=== PATIENT | female | born 1975 | race Caucasian/White ===

== ENCOUNTER 2021-12-12 13:07 | Outpatient (CLI) | payer BC, SELFPAY ==
--- NOTE | 2021-12-12 13:20 | CRLHL7_ITS ---
For Patients: As a result of the Century Cures Act, medical imaging exams and procedure reports are released immediately into your electronic medical record. You may view this report before your referring provider. If you have questions, please contact your health care provider. BILATERAL SCREENING MAMMOGRAM WITH COMPUTER-AIDED DETECTION AND TOMOSYNTHESIS TECHNIQUE: CC and MLO views were obtained. These mammographic images have been obtained using full-field digital technique. These mammographic images were interpreted with the benefit of computer-aided detection. Breast Tomosynthesis was used in this interpretation. COMPARISON FILM: 11/08/20, 11/03/19, 10/18/18. FINDINGS: There are scattered areas of fibroglandular density IMPRESSION: There is no radiographic evidence for malignancy. ASSESSMENT: BI-RADS Category 1: Negative RECOMMENDATION: Routine screening mammogram in 1 year. A lay language report of this examination will be provided to the patient. Octavio Jernigan M.D. Diagnostic Radiologist [email or web address] PAT/Dictated by: Octavio Jernigan MD @ 12/13/2021 1:06:00 PM (Electronically Signed)
== END 2021-12-12 13:08 | disposition home or self-care (01) ==
LOC: MAMMO 13:08
PROVIDERS: Visit Provider Obstetrics & Gynecology
DX: Z12.31 Encounter for screening mammogram for malignant neoplasm of breast (principal)
CPT/HCPCS: 77063; 77067

== ENCOUNTER 2023-04-30 12:48 | Outpatient (CLI) | payer BC, SELFPAY ==
--- NOTE | 2023-04-30 13:00 | CRLHL7_ITS ---
For Patients: As a result of the Century Cures Act, medical imaging exams and procedure reports are released immediately into your electronic medical record. You may view this report before your referring provider. If you have questions, please contact your health care provider. BILATERAL SCREENING MAMMOGRAM WITH COMPUTER-AIDED DETECTION AND TOMOSYNTHESIS TECHNIQUE: CC and MLO views were obtained. These mammographic images have been obtained using full-field digital technique. These mammographic images were interpreted with the benefit of computer-aided detection. Breast Tomosynthesis was used in this interpretation. COMPARISON FILM: 12/12/21, 11/08/20, 11/03/19. FINDINGS: There are scattered areas of fibroglandular density IMPRESSION: There is no radiographic evidence for malignancy. ASSESSMENT: BI-RADS Category 1: Negative RECOMMENDATION: Routine screening mammogram in 1 year. A lay language report of this examination will be provided to the patient. Facundo Glass M.D. Diagnostic/Nuclear Medicine Radiologist [email or web address] PAT/Dictated by: Facundo Glass MD @ 05/01/2023 8:51:00 AM (Electronically Signed)
== END 2023-04-30 12:49 | disposition home or self-care (01) ==
LOC: MAMMO 12:50
PROVIDERS: PCP Family Medicine; Visit Provider Obstetrics & Gynecology
DX: Z01.419 Encounter for gynecological examination (general) (routine) without abnormal findings (principal); Z13.6 Encounter for screening for cardiovascular disorders; Z13.1 Encounter for screening for diabetes mellitus; Z13.29 Encounter for screening for other suspected endocrine disorder; Z12.31 Encounter for screening mammogram for malignant neoplasm of breast
CPT/HCPCS: 77063; 77067; 80061; 82947; 84443

== ENCOUNTER 2023-04-30 13:57 | Outpatient (CLI) | payer BC, SELFPAY | END 2023-04-30 13:58 | disposition home or self-care (01) | PROVIDERS: PCP Family Medicine; Visit Provider Obstetrics & Gynecology | DX: N64.52 Nipple discharge (principal) | CPT/HCPCS: 80061; 82947; 84146; 84443 ==

== ENCOUNTER 2023-08-06 07:59 | Outpatient (CLI) | payer BC, SELFPAY ==
--- NOTE | 2023-08-06 09:02 | W.ANESCHARGE ---
Anesthesia Charges Start Date/Time Anesthesia Start Date: 08/06/23 Anesthesia Start Time: 09:10 Stop Date/Time Anesthesia Stop Date: 08/06/23 Anesthesia Stop Time: 09:35
--- NOTE | 2023-08-06 09:38 | W.ANESCHARGE ---
Anesthesia Charges Start Date/Time Anesthesia Start Date: 08/06/23 Anesthesia Start Time: 09:10 Stop Date/Time Anesthesia Stop Date: 08/06/23 Anesthesia Stop Time: 09:35
== END 2023-08-06 08:00 | disposition home or self-care (01) ==
LOC: OP CLINIC 08:00
PROVIDERS: PCP Family Medicine; Visit Provider Surgery
DX: Z12.11 Encounter for screening for malignant neoplasm of colon (principal); K57.30 Diverticulosis of large intestine without perforation or abscess without bleeding
CPT/HCPCS: 00812; 45378; J2704

== ENCOUNTER 2024-05-30 12:51 | Outpatient (CLI) | payer OTHER, SELFPAY ==
--- NOTE | 2024-05-30 13:00 | CRLHL7_ITS ---
For Patients: As a result of the Century Cures Act, medical imaging exams and procedure reports are released immediately into your electronic medical record. You may view this report before your referring provider. If you have questions, please contact your health care provider. INDICATION: Neck pain. Cervical radiculopathy. TECHNIQUE: Noncontrast sagittal T1, T2, STIR and axial GRE sequences are provided. No comparisons. FINDINGS: Mild edema within the right C3-4 facet. The overall stature, alignment and intrinsic marrow signal within the remainder of the cervical spine is within normal limits. Cervical cord is normal. C2-3, C3-4, C4-5: No central canal or foraminal narrowing. C5-6: Mild disc osteophyte complex effaces the ventral thecal sac resulting in mild central canal narrowing. [id number] left and no right foraminal narrowing. C6-7: Mild disc osteophyte complex results in no central canal narrowing. Mild bilateral foraminal narrowing due to uncovertebral joint facet arthropathy. C7-T1: Unremarkable. IMPRESSION: 1. Mild edema within the right C3-4 facet that may be due to reactive or advanced degenerative phenomenon. 2. Mild central canal narrowing with [id number] left foraminal narrowing at C5-6. 3. Mild bilateral C6-7 foraminal narrowing. Dictated by Yehuda Briceno MD @ 05/30/2024 6:30:59 PM (Electronically Signed)
== END 2024-05-30 12:52 | disposition home or self-care (01) ==
LOC: MRI 12:52
PROVIDERS: PCP Family Medicine; Visit Provider Family Medicine
DX: M54.12 Radiculopathy, cervical region (principal); M54.2 Cervicalgia; M50.222 Other cervical disc displacement at C5-C6 level; M50.223 Other cervical disc displacement at C6-C7 level
CPT/HCPCS: 72141

== ENCOUNTER 2024-10-06 13:49 | Outpatient (CLI) | payer OTHER, SELFPAY ==
--- NOTE | 2024-10-06 14:00 | CRLHL7_ITS ---
For Patients: As a result of the Century Cures Act, medical imaging exams and procedure reports are released immediately into your electronic medical record. You may view this report before your referring provider. If you have questions, please contact your health care provider. INDICATION: BILATERAL SCREENING MAMMOGRAM, ASYMPTOMATIC 49 Y/O FEMALE COMPARISON: 04/30/2023, 12/12/2021,. 11/08/2020 TECHNIQUE: Digital mammogram in CC and MLO projections including computer-aided detection (CAD) and tomosynthesis. BREAST COMPOSITION: The breasts are heterogeneously dense, which may obscure small masses. FINDINGS: No suspicious findings. ASSESSMENT: BI-RADS 1 Negative RECOMMENDATION: Annual screening mammogram. A lay language report of this examination will be provided to the patient. Dictated by: Octavio Jernigan MD @ 10/07/2024 11:39:05 (Electronically Signed)
== END 2024-10-06 13:50 | disposition home or self-care (01) ==
LOC: MAMMO 13:49
PROVIDERS: PCP Family Medicine; Visit Provider Obstetrics & Gynecology
DX: Z12.31 Encounter for screening mammogram for malignant neoplasm of breast (principal); R92.333 Mammographic heterogeneous density, bilateral breasts
CPT/HCPCS: 77063; 77067